=== PATIENT | male | born 1965 | race Caucasian/White ===

== ENCOUNTER 2017-02-10 16:55 | Inpatient (IN) | payer OTHER ==
[2017-02-10 19:04] VITALS: BMI 20.9
--- NOTE | 2017-02-10 20:15 | HP ---
COWS - Scale Resting Pulse: 0= [place] 80 or Below Sweatin= Chills/Flushing Restless Observation: 1= Difficult to Sit Still Pupil Size: 1= Pupils >than Normal Bone or Joint Aches: 2= Severe Diffuse Aches Runny Nose/ Eye Tearin= Nasal Congestion GI Upset > 30mins: 1= Stomach Cramp Tremor Observation: 2= Slight Tremor Visible Yawning Observation: 1= 1-2x During Session Anxiety or Irritability: 1=Feels Anxious/Irritable Goose Flesh Skin: 3=Piloerection COWS Score: 14 Admission ROS S - HPI Chief Complaint: WITHDRAWAL SX Allergies/Adverse Reactions: Allergies Allergy/AdvReac Type Severity Reaction Status Date / Time fish derived Allergy Severe Hives & Verified 02/10/17 19:49 Rash shellfish derived Allergy Severe Hives Verified 02/10/17 19:49 No Known Drug Allergies Allergy Verified 02/10/17 19:49 sea food Allergy Severe Hives Uncoded 02/10/17 19:49 History of Present Illness: 51 YEARS OLD MALE WITH LONG HISTORY OF OPIOID NICOTINE DEPENDENCE DENIES MEDICAL DENIES MENTAL ILLNESS IS ADMITTED TO DETOX Exam Limitations: No Limitations - Ebola screening Have you traveled outside of the country in the last 21 days: No (N) Have you had contact with anyone from an Ebola affected area: No Have you been sick,other than usual withdrawal symptoms: No Do you have a fever: No - Review of Systems Constitutional: Weight Stable EENT: reports: Blurred Vision (EYE GLASSES) Respiratory: reports: No Symptoms reported Cardiac: reports: No Symptoms Reported GI: reports: Nausea, Poor Fluid Intake, Abdominal cramping : reports: No Symptoms Reported Musculoskeletal: reports: Back Pain, Joint Pain, Muscle Pain, Neck Pain Integumentary: reports: Change in Color (LEFT ARM) Neuro: reports: Tremors Endocrine: reports: No Symptoms Reported Hematology: reports: No Symptoms Reported Psychiatric: reports: No Sypmtoms Reported, Judgement Intact, Mood/Affect Appropiate, Orientated x3 Other Systems: Reviewed and Negative Patient History - Patient Medical History Hx Anemia: No Hx Asthma: No Hx Chronic Obstructive Pulmonary Disease (COPD): No Hx Cancer: No Hx Cardiac Disorders: No Hx Congestive Heart Failure: No Hx Hypertension: No Hx Hypercholesterolemia: No Hx Pacemaker: No HX Cerebrovascular Accident: No Hx Seizures: No Hx Dementia: No Hx Diabetes: No Hx Gastrointestinal Disorders: No Hx Liver Disease: No Hx Genitourinary Disorders: No Hx Sexually Transmitted Disorders: No Hx Renal Disease (ESRD): No Hx Thyroid Disease: No Hx Human Immunodeficiency Virus (HIV): No (LAST 08/14 ) Hx Hepatitis C: No Hx Depression: No Hx Suicide Attempt: No Hx Bipolar Disorder: No Hx Schizophrenia: No - Patient Surgical History Past Surgical History: No Hx Neurologic Surgery: No Hx Cataract Extraction: No Hx Cardiac Surgery: No Hx Lung Surgery: No Hx Breast Surgery: No Hx Breast Biopsy: No Hx Abdominal Surgery: No Hx Appendectomy: No Hx Cholecystectomy: No Hx Genitourinary Surgery: No Hx Orthopedic Surgery: No - PPD History Previous Implant?: Yes Documented Results: Negative w/proof Implanted On Prior [facility] Admission?: Yes Date: 10/15/15 Results: 0 MM PPD to be Administered?: Yes - Smoking Cessation Smoking history: Current every day smoker Have you smoked in the past 12 months: Yes Aproximately how many cigarettes per day: 10 Cigars Per Day: 0 Hx Chewing Tobacco Use: No Initiated information on smoking cessation: Yes 'Breaking Loose' booklet given: 02/10/17 - Substance & Tx. History Hx Alcohol Use: No Hx Substance Use: Yes Substance Use Type: Opiates Hx Substance Use Treatment: Yes (01/08-01/11/16 [facility]) - Substances Abused Heroin Route: Injection Frequency: Daily Amount used: 6 bags Age of first use: 16 Date of Last Use: 02/10/17 Family Disease History - Family Disease History Family Disease History: [place]: Father (PROSTATE ) Admission Physical Exam S - Vital Signs Vital Signs: Vital Signs - 24 hr 02/10/17 19:02 Temperature 97.0 F L Pulse Rate 69 Respiratory 20 Rate Blood Pressure 151/99 - Physical General Appearance: Yes: Appropriately Dressed, Mild Distress, Thin, Tremorous, Irritable, Sweating, Anxious HEENTM: Yes: Hearing grossly Normal, Normal ENT Inspection, Normocephalic, Normal Voice, Other (EYE GLASSES) Respiratory: Yes: Chest Non-Tender, Lungs Clear, Normal Breath Sounds, No Respiratory Distress, No Accessory Muscle Use Neck: Yes: Supple, Trachea in good position Breast: Yes: Breasts Symetrical Cardiology: Yes: Regular Rhythm, Regular Rate, S1, S2 Abdominal: Yes: Non Tender, Soft Genitourinary: Yes: Within Normal Limits Back: Yes: Normal Inspection Musculoskeletal: Yes: full range of Motion, Gait Steady, Back pain, Muscle Pain Extremities: Yes: Normal Range of Motion, Non-Tender, Tremors Neurological: Yes: Alert Integumentary: Yes: Warm, Track Dasilva Lymphatic: Yes: Within Normal Limits - Diagnostic (1) Nicotine dependence Current Visit: Yes Status: Acute (2) Opioid dependence with withdrawal Current Visit: Yes Status: Acute (3) Weight decreased Current Visit: Yes Status: Acute (4) Back ache Current Visit: Yes Status: Chronic Qualifiers: Back pain location: low back pain Chronicity: chronic Back pain laterality: midline Sciatica presence: without sciatica Qualified Code(s): M54.5 - Low back pain; G89.29 - Other chronic pain (5) Excessive ear wax Current Visit: Yes Status: Chronic Qualifiers: Laterality: bilateral Qualified Code(s): H61.23 - Impacted cerumen, bilateral Cleared for Admission [facility] - Detox or Rehab [facility] Level of Care: Medically Managed Detox Regimen/Protocol: Methadone [facility] Breath Alcohol Content Breath Alcohol Content: 0 Urine Drug Screen - Results Drug Screen Negative: No Urine Drug Screen Results: OPI-Opiates
[2017-02-10] MEDS ORDERED: NICOTINE POLACRILEX 2 MG GUM BC PRN (20:17)
[2017-02-10] MEDS ORDERED: MAG HYDROX/AL HYDROX/SIMETH 30 ML UNIT-DOSE CUP PO PRN (20:17)
[2017-02-10] MEDS ORDERED: MAGNESIUM CITRATE 300 ML BOTTLE PO PRN (20:17)
[2017-02-10] MEDS ORDERED: METHADONE HCL 10 MG TABLET (FOR DETOX USE ONLY) PO ONE ×2 (20:17→23:00)
[2017-02-10] MEDS ORDERED: ACETAMINOPHEN 325 MG TABLET (FP) PO PRN (20:17)
[2017-02-10] MEDS ORDERED: guaiFENesin/D-METHORPHAN HB 10 ML UNIT-DOSE CUPS PO PRN (20:17)
[2017-02-10] MEDS ORDERED: MENTHOL/PHENOL 1 EACH UD MM PRN (20:17)
[2017-02-10] MEDS ORDERED: MAGNESIUM HYDROX 2400MG/30ML ORAL SUSPENSION 30 ML CUP PO PRN (20:17)
[2017-02-10] MEDS ORDERED: P-EPHED 60MG/TRIPROLIDI 2.5MG TABLET PO PRN (20:17)
[2017-02-10] MEDS ORDERED: LOPERAMIDE HCL 2 MG CAPSULE PO PRN (20:17)
[2017-02-10] MEDS: THIAMINE HCL 100 MG TABLET (FP) PO SCH (21:18)
[2017-02-10] MEDS: diazePAM 5 MG TABLET PO PRN (21:19)
[2017-02-10] MEDS: IBUPROFEN 400 MG TABLET (FP) PO PRN (22:49)
[2017-02-10] MEDS: diphenhydrAMINE HCL 50 MG CAPSULE PO PRN (22:49)
[2017-02-10] MEDS: CARBAMIDE PEROXIDE 6.5% OTIC 15 ML BOTTLE AU SCH (23:04)
[2017-02-10 23:18] LABS: URINE APPEARANCE CLOUDY; URINE BILIRUBIN NEGATIVE (NEGATIVE); URINE BLOOD NEGATIVE (NEGATIVE); URINE COLOR AMBER; URINE GLUCOSE (UA) NEGATIVE (NEGATIVE); URINE KETONE NEGATIVE (NEGATIVE); URINE LEUK ESTERASE NEGATIVE (NEGATIVE); URINE NITRITE NEGATIVE (NEGATIVE); URINE PROTEIN NEGATIVE (NEGATIVE); URINE UROBILINOGEN NEGATIVE mg/dL (0.2-1.0)
[2017-02-11] MEDS: diazePAM 5 MG TABLET PO PRN ×3 (05:32→22:29)
[2017-02-11] MEDS ORDERED: METHADONE HCL 10 MG TABLET (FOR DETOX USE ONLY) PO ONE (10:00)
[2017-02-11 10:27] LABS: MCH 30.1 pg (25.7-33.7); MCHC 33.3 g/dl (32.0-35.9); MEAN CELL VOLUME 90.5 fl (80-96); MEAN PLT VOLUME 7.9 fl (7.5-11.1); PLATELET COUNT 232 K/MM3 (134-434); RDW 13.5 % (11.9-15.9); WHITE BLOOD COUNT 7.4 K/mm3 (4.0-10.0)
[2017-02-11 10:33] LABS: ALBUMIN 3.2 g/dl (3.4-5.0); ANION GAP 6 (8-16); CALCIUM 8.8 mg/dL (8.5-10.1); CO2 29 mmol/L (21-32); GLUCOSE,RANDOM 79 mg/dL (74-106)
[2017-02-11] MEDS: PRENATAL VITAMINS W/ FOLIC ACID TABLET (FP) PO SCH (10:37)
[2017-02-11 10:38] LABS: ALK PHOS 83 U/L (45-117); BILIRUBIN,TOTAL 0.3 mg/dL (0.2-1.0); CREATININE 0.7 mg/dL (0.7-1.3); SGOT/AST 32 U/L (15-37); SGPT/ALT 38 U/L (12-78)
[2017-02-11] MEDS: LIDOCAINE 5% TOPICAL PATCH TP SCH (10:38)
[2017-02-11] MEDS: NICOTINE 14 MG/24 HOURS TOPICAL PATCH TD SCH (10:38)
[2017-02-11] MEDS: CARBAMIDE PEROXIDE 6.5% OTIC 15 ML BOTTLE AU SCH ×2 (11:06→22:26)
--- NOTE | 2017-02-11 12:19 | PN ---
S COWS - Scale Resting Pulse: 0= [place] 80 or Below Sweatin= Chills/Flushing Restless Observation: 1= Difficult to Sit Still Pupil Size: 0= Normal to Room Light Bone or Joint Aches: 1= Mild Discomfort Runny Nose/ Eye Tearin= Runny Nose/Eyes GI Upset > 30mins: 1= Stomach Cramp Tremor Observation of Outstretched Hands: 2= Slight Tremor Visible Yawning Observation: 2= >3x During Session Anxiety or Irritability: 2=Irritable/Anxious Goose Flesh Skin: 3=Piloerection COWS Score: 15 S Progress Note (SOAP) Subjective: Fatigue, Tremors. Objective: PT. A & O X 3. NO ACUTE DISTRESS. 02/11/17 12:20 Vital Signs Temperature 97.6 F 02/11/17 09:43 Pulse Rate 78 02/11/17 09:43 Respiratory Rate 18 02/11/17 09:43 Blood Pressure 128/89 02/11/17 09:43 O2 Sat by Pulse Oximetry (%) Laboratory Tests 02/10/17 02/11/17 02/11/17 23:11 07:00 07:00 WBC 7.4 RBC 4.41 Hgb 13.3 Hct 39.9 MCV 90.5 MCH 30.1 MCHC 33.3 RDW 13.5 Plt Count 232 MPV 7.9 Sodium 139 Potassium 3.7 Chloride 104 Carbon Dioxide 29 Anion Gap 6 L BUN 13 Creatinine 0.7 Creat Clearance w eGFR > 60 Random Glucose 79 Calcium 8.8 Total Bilirubin 0.3 D AST 32 D ALT 38 D Alkaline Phosphatase 83 Total Protein 7.0 Albumin 3.2 L Urine Color Kathleen Urine Appearance Cloudy Urine pH 5.0 Ur Specific [place] 1.025 Urine Protein Negative Urine Glucose (UA) Negative Urine Ketones Negative Urine Blood Negative Urine Nitrite Negative Urine Bilirubin Negative Urine Urobilinogen Negative Ur Leukocyte Esterase Negative RPR Titer 02/11/17 07:00 WBC RBC Hgb Hct MCV MCH MCHC RDW Plt Count MPV Sodium Potassium Chloride Carbon Dioxide Anion Gap BUN Creatinine Creat Clearance w eGFR Random Glucose Calcium Total Bilirubin AST ALT Alkaline Phosphatase Total Protein Albumin Urine Color Urine Appearance Urine pH Ur Specific [place] Urine Protein Urine Glucose (UA) Urine Ketones Urine Blood Urine Nitrite Urine Bilirubin Urine Urobilinogen Ur Leukocyte Esterase RPR Titer Nonreactive LABS NOTED. Assessment: 02/11/17 12:20 WITHDRAWAL SYMPTOMS. Plan: CONTINUE DETOX.
[2017-02-11] MEDS: IBUPROFEN 400 MG TABLET (FP) PO PRN ×2 (13:01→22:29)
--- NOTE | 2017-02-11 20:01 | EKG ---
Test Reason : Blood Pressure : / mmHG Vent. Rate : 063 BPM Atrial Rate : 063 BPM P-R Int : 178 ms QRS Dur : 108 ms QT Int : 418 ms P-R-T Axes : 067 071 063 degrees QTc Int : 427 ms NORMAL SINUS RHYTHM POSSIBLE LEFT ATRIAL ENLARGEMENT INCOMPLETE RIGHT BUNDLE BRANCH BLOCK BORDERLINE ECG NO PREVIOUS ECGS AVAILABLE Confirmed by ABEL LOPEZ MD ([id number] on 02/11/2017 8:01:10 PM Referred By: Confirmed By:ABEL LOPEZ MD
[2017-02-11] MEDS: THIAMINE HCL 100 MG TABLET (FP) PO SCH (22:27)
[2017-02-11] MEDS: diphenhydrAMINE HCL 50 MG CAPSULE PO PRN (22:29)
[2017-02-11] MEDS: LIDOCAINE PATCH REMOVAL MC SCH (22:29)
[2017-02-12] MEDS: diazePAM 5 MG TABLET PO PRN ×4 (05:38→22:25)
[2017-02-12] MEDS ORDERED: METHADONE HCL 5 MG TABLET (FOR DETOX USE ONLY) PO ONE (10:00)
[2017-02-12] MEDS: PRENATAL VITAMINS W/ FOLIC ACID TABLET (FP) PO SCH (10:37)
[2017-02-12] MEDS: CARBAMIDE PEROXIDE 6.5% OTIC 15 ML BOTTLE AU SCH ×2 (10:38→22:01)
[2017-02-12] MEDS: LIDOCAINE 5% TOPICAL PATCH TP SCH (10:38)
[2017-02-12] MEDS: NICOTINE 14 MG/24 HOURS TOPICAL PATCH TD SCH (10:38)
[2017-02-12] MEDS: IBUPROFEN 400 MG TABLET (FP) PO PRN ×2 (10:39→22:28)
--- NOTE | 2017-02-12 12:15 | PN ---
S COWS - Scale Resting Pulse: 0= [place] 80 or Below Sweatin= Chills/Flushing Restless Observation: 1= Difficult to Sit Still Pupil Size: 1= Pupils >than Normal Bone or Joint Aches: 1= Mild Discomfort Runny Nose/ Eye Tearin= Nasal Congestion GI Upset > 30mins: 2= Nausea/Diarrhea Tremor Observation of Outstretched Hands: 1= Tremor [place], Not Seen Yawning Observation: 1= 1-2x During Session Anxiety or Irritability: 2=Irritable/Anxious Goose Flesh Skin: 3=Piloerection COWS Score: 14 S Progress Note (SOAP) Subjective: nausea, sweats, interrupted sleep, anxiety, tremors felt Objective: 02/12/17 12:14 Vital Signs - 8 hr 02/12/17 02/12/17 06:46 10:15 Temperature 96.2 F L 96.6 F L Pulse Rate 65 71 Respiratory 18 18 Rate Blood Pressure 142/104 133/100 Laboratory Tests 02/10/17 02/11/17 02/11/17 23:11 07:00 07:00 WBC 7.4 RBC 4.41 Hgb 13.3 Hct 39.9 MCV 90.5 MCH 30.1 MCHC 33.3 RDW 13.5 Plt Count 232 MPV 7.9 Sodium 139 Potassium 3.7 Chloride 104 Carbon Dioxide 29 Anion Gap 6 L BUN 13 Creatinine 0.7 Creat Clearance w eGFR > 60 Random Glucose 79 Calcium 8.8 Total Bilirubin 0.3 D AST 32 D ALT 38 D Alkaline Phosphatase 83 Total Protein 7.0 Albumin 3.2 L Urine Color Kathleen Urine Appearance Cloudy Urine pH 5.0 Ur Specific [place] 1.025 Urine Protein Negative Urine Glucose (UA) Negative Urine Ketones Negative Urine Blood Negative Urine Nitrite Negative Urine Bilirubin Negative Urine Urobilinogen Negative Ur Leukocyte Esterase Negative RPR Titer 02/11/17 07:00 WBC RBC Hgb Hct MCV MCH MCHC RDW Plt Count MPV Sodium Potassium Chloride Carbon Dioxide Anion Gap BUN Creatinine Creat Clearance w eGFR Random Glucose Calcium Total Bilirubin AST ALT Alkaline Phosphatase Total Protein Albumin Urine Color Urine Appearance Urine pH Ur Specific [place] Urine Protein Urine Glucose (UA) Urine Ketones Urine Blood Urine Nitrite Urine Bilirubin Urine Urobilinogen Ur Leukocyte Esterase RPR Titer Nonreactive elevated lfts, hypoalbuminemia Assessment: 02/12/17 12:15 withdrawal sx Plan: cont detox, fluids, encourage ambulation
[2017-02-12] MEDS ORDERED: PNEUMOC 13-VAL CONJ-DIP CRM/PF 0.5 ML DISP.SYRIN IM ONE (14:29)
[2017-02-12] MEDS: THIAMINE HCL 100 MG TABLET (FP) PO SCH (22:25)
[2017-02-12] MEDS: diphenhydrAMINE HCL 50 MG CAPSULE PO PRN (22:25)
[2017-02-12] MEDS: LIDOCAINE PATCH REMOVAL MC SCH (22:27)
[2017-02-13] MEDS: diazePAM 5 MG TABLET PO PRN (04:57)
[2017-02-13] MEDS ORDERED: METHADONE HCL 5 MG TABLET (FOR DETOX USE ONLY) PO ONE (10:00)
[2017-02-13] MEDS ORDERED: METHADONE HCL 10 MG TABLET (FOR DETOX USE ONLY) PO ONE (10:00)
[2017-02-13] MEDS: LIDOCAINE 5% TOPICAL PATCH TP SCH (10:31)
[2017-02-13] MEDS: PRENATAL VITAMINS W/ FOLIC ACID TABLET (FP) PO SCH (10:31)
[2017-02-13] MEDS: NICOTINE 14 MG/24 HOURS TOPICAL PATCH TD SCH (10:34)
[2017-02-13] MEDS: CARBAMIDE PEROXIDE 6.5% OTIC 15 ML BOTTLE AU SCH ×2 (10:34→22:18)
[2017-02-13] MEDS ORDERED: PNEUMOCOCCAL 23 VACCINE 0.5 ML VIAL IM ONE (12:00)
[2017-02-13] MEDS ORDERED: PNEUMOC 13-VAL CONJ-DIP CRM/PF 0.5 ML DISP.SYRIN IM ONE (12:00)
--- NOTE | 2017-02-13 16:23 | PN ---
[facility] Progress Note (SOAP) Subjective: Sweating,interrupted sleep,restless. Objective: 02/13/17 16:22 Vital Signs - 8 hr 02/13/17 02/13/17 09:38 13:57 Temperature 97.7 F Pulse Rate 77 74 Respiratory 18 18 Rate Blood Pressure 124/91 129/96 Laboratory Last Values WBC 7.4 K/mm3 (4.0-10.0) 02/11/17 07:00 RBC 4.41 M/mm3 (4.00-5.60) 02/11/17 07:00 Hgb 13.3 GM/dL (11.7-16.9) 02/11/17 07:00 Hct 39.9 % (35.4-49) 02/11/17 07:00 MCV 90.5 fl (80-96) 02/11/17 07:00 MCH 30.1 pg (25.7-33.7) 02/11/17 07:00 MCHC 33.3 g/dl (32.0-35.9) 02/11/17 07:00 RDW 13.5 % (11.9-15.9) 02/11/17 07:00 Plt Count 232 K/MM3 (134-434) 02/11/17 07:00 MPV 7.9 fl (7.5-11.1) 02/11/17 07:00 Sodium 139 mmol/L (136-145) 02/11/17 07:00 Potassium 3.7 mmol/L (3.5-5.1) 02/11/17 07:00 Chloride 104 mmol/L (98-107) 02/11/17 07:00 Carbon Dioxide 29 mmol/L (21-32) 02/11/17 07:00 Anion Gap 6 (8-16) L 02/11/17 07:00 BUN 13 mg/dL (7-18) 02/11/17 07:00 Creatinine 0.7 mg/dL (0.7-1.3) 02/11/17 07:00 Creat Clearance w eGFR > 60 (>60) 02/11/17 07:00 Random Glucose 79 mg/dL (74-106) 02/11/17 07:00 Calcium 8.8 mg/dL (8.5-10.1) 02/11/17 07:00 Total Bilirubin 0.3 mg/dL (0.2-1.0) D 02/11/17 07:00 AST 32 U/L (15-37) D 02/11/17 07:00 ALT 38 U/L (12-78) D 02/11/17 07:00 Alkaline Phosphatase 83 U/L (45-117) 02/11/17 07:00 Total Protein 7.0 g/dl (6.4-8.2) 02/11/17 07:00 Albumin 3.2 g/dl (3.4-5.0) L 02/11/17 07:00 Urine Color Kathleen 02/10/17 23:11 Urine Appearance Cloudy 02/10/17 23:11 Urine pH 5.0 (5.0-8.0) 02/10/17 23:11 Ur Specific [place] 1.025 (1.005-1.025) 02/10/17 23:11 Urine Protein Negative (NEGATIVE) 02/10/17 23:11 Urine Glucose (UA) Negative (NEGATIVE) 02/10/17 23:11 Urine Ketones Negative (NEGATIVE) 02/10/17 23:11 Urine Blood Negative (NEGATIVE) 02/10/17 23:11 Urine Nitrite Negative (NEGATIVE) 02/10/17 23:11 Urine Bilirubin Negative (NEGATIVE) 02/10/17 23:11 Urine Urobilinogen Negative mg/dL (0.2-1.0) 02/10/17 23:11 Ur Leukocyte Esterase Negative (NEGATIVE) 02/10/17 23:11 RPR Titer Nonreactive (NONREACTIVE) 02/11/17 07:00 labs noted Assessment: 02/13/17 16:22 Withdrawal sx. Plan: Continue detox
[2017-02-13] MEDS: IBUPROFEN 400 MG TABLET (FP) PO PRN (18:41)
[2017-02-13] MEDS: THIAMINE HCL 100 MG TABLET (FP) PO SCH (22:17)
[2017-02-13] MEDS: diphenhydrAMINE HCL 50 MG CAPSULE PO PRN (22:18)
[2017-02-13] MEDS: LIDOCAINE PATCH REMOVAL MC SCH (23:01)
[2017-02-14] MEDS ORDERED: METHADONE HCL 5 MG TABLET (FOR DETOX USE ONLY) PO ONE (06:00)
[2017-02-14 06:27] VITALS: BP 139/99; PULSE 64; TEMP 97
[2017-02-14] MEDS ORDERED: METHADONE HCL 10 MG TABLET (FOR DETOX USE ONLY) PO ONE (10:00)
--- NOTE | 2017-02-14 22:30 | DS ---
[facility] Detox Discharge Summary Admission Date: 02/10/17 Discharge Date: 02/14/17 - History Present History: Opioid Dependence Additional Comments: PATIENT TO GO TO [facility] IN [place]. PATIENT ADVISED TO CONSIDER LOCAL 12-STEP / NA PROGRAMS FOR FOLLOW-UP AFTERCARE. PATIENT DISCHARGED FROM UNIT IN STABLE MEDICAL CONDITION. Pertinent Past History: Low Back Pain, Ear Wax. - Physical Exam Results Vital Signs: Vital Signs Temperature 97 F L 02/14/17 06:26 Pulse Rate 64 02/14/17 06:26 Respiratory Rate 18 02/14/17 06:26 Blood Pressure 139/99 02/14/17 06:26 O2 Sat by Pulse Oximetry (%) Pertinent Admission Physical Exam Findings: WITHDRAWAL SYMPTOMS. Laboratory Tests 02/10/17 02/11/17 02/11/17 23:11 07:00 07:00 WBC 7.4 RBC 4.41 Hgb 13.3 Hct 39.9 MCV 90.5 MCH 30.1 MCHC 33.3 RDW 13.5 Plt Count 232 MPV 7.9 Sodium 139 Potassium 3.7 Chloride 104 Carbon Dioxide 29 Anion Gap 6 L BUN 13 Creatinine 0.7 Creat Clearance w eGFR > 60 Random Glucose 79 Calcium 8.8 Total Bilirubin 0.3 D AST 32 D ALT 38 D Alkaline Phosphatase 83 Total Protein 7.0 Albumin 3.2 L Urine Color Kathleen Urine Appearance Cloudy Urine pH 5.0 Ur Specific [place] 1.025 Urine Protein Negative Urine Glucose (UA) Negative Urine Ketones Negative Urine Blood Negative Urine Nitrite Negative Urine Bilirubin Negative Urine Urobilinogen Negative Ur Leukocyte Esterase Negative RPR Titer 02/11/17 07:00 WBC RBC Hgb Hct MCV MCH MCHC RDW Plt Count MPV Sodium Potassium Chloride Carbon Dioxide Anion Gap BUN Creatinine Creat Clearance w eGFR Random Glucose Calcium Total Bilirubin AST ALT Alkaline Phosphatase Total Protein Albumin Urine Color Urine Appearance Urine pH Ur Specific [place] Urine Protein Urine Glucose (UA) Urine Ketones Urine Blood Urine Nitrite Urine Bilirubin Urine Urobilinogen Ur Leukocyte Esterase RPR Titer Nonreactive LABS NOTED. - Treatment Hospital Course: Detox Protocol Followed, Detoxed Safely, Responded well, Discharged Condition Good Patient has Accepted a Rehab Referral to: PT GOING TO [facility], ADVISED TO CONSIDER 12-STEP/NA PROGRAMS - Medication Discharge Medications: Ambulatory Orders NK [No Known Home Medication] 10/14/13 - Diagnosis (1) Nicotine dependence Status: Chronic (2) Back ache Status: Chronic Qualifiers: Back pain location: low back pain Chronicity: chronic Back pain laterality: midline Sciatica presence: without sciatica Qualified Code(s): M54.5 - Low back pain (3) Excessive ear wax Status: Chronic Qualifiers: Laterality: bilateral Qualified Code(s): H61.23 - Impacted cerumen, bilateral (4) Opioid dependence with withdrawal Status: Acute (5) Weight decreased Status: Acute - AMA Did Patient Leave Against Medical Advice: No
[2017-02-15] MEDS ORDERED: METHADONE HCL 5 MG TABLET (FOR DETOX USE ONLY) PO ONE (06:00)
== END 2017-02-14 07:20 | disposition home or self-care (01) | DRG 773 ==
LOC: YASAS 16:55 → Y3N 20:05
PROVIDERS: ADMIT Internal Medicine; ATTEND Internal Medicine
PROC: HZ2ZZZZ Detoxification Services for Substance Abuse Treatment (ICD-10-PCS; principal; 2017-02-10)
DX: F11.23 Opioid dependence with withdrawal (principal); F17.210 Nicotine dependence, cigarettes, uncomplicated; H61.23 Impacted cerumen, bilateral; M54.5 Low back pain; R94.5 Abnormal results of liver function studies; E88.09 Other disorders of plasma-protein metabolism, not elsewhere classified; Z91.013 Allergy to seafood; Z87.898 Personal history of other specified conditions
CPT/HCPCS: 36415; 80053; 81003; 85027; 86593; 93005; 93010

== ENCOUNTER 2017-11-06 13:56 | Inpatient (IN) | payer OTHER ==
[2017-11-06 16:22] VITALS: BMI 25.0
--- NOTE | 2017-11-06 17:11 | HP ---
COWS - Scale Resting Pulse: 1= [place] 81-100 Sweatin= Beads of Sweat on Face Restless Observation: 1= Difficult to Sit Still Pupil Size: 2= Moderately Dilated Bone or Joint Aches: 2= Severe Diffuse Aches Runny Nose/ Eye Tearin= Nasal Congestion GI Upset > 30mins: 0= None Tremor Observation: 0= None Yawning Observation: 1= 1-2x During Session Anxiety or Irritability: 2=Irritable/Anxious Goose Flesh Skin: 0=Smooth Skin COWS Score: 13 Admission ROS [facility] Chief Complaint: Heroin withdrawal symptoms. Allergies/Adverse Reactions: Allergies Allergy/AdvReac Type Severity Reaction Status Date / Time fish derived Allergy Severe Hives & Verified 11/06/17 17:08 Rash shellfish derived Allergy Severe Hives Verified 11/06/17 17:08 No Known Drug Allergies Allergy Verified 11/06/17 17:08 sea food Allergy Severe Hives Uncoded 11/06/17 17:08 History of Present Illness: Patient presents for heroin withdrawal symptoms. Pt last detox here at [facility] in 2016. Began injecting Heroin at 21 years old and uses up to 5-6 bags daily. Patient last used heroin this morning at 6 am. Denies any SI/HI/suicide attempts. Denies history of Hep C and HIV. States he feels tired and just wants to stop using. - Ebola screening Have you traveled outside of the country in the last 21 days: No ([place]) Have you had contact with anyone from an Ebola affected area: No Have you been sick,other than usual withdrawal symptoms: No Do you have a fever: No - Review of Systems Constitutional: Night Sweats, Changes in sleep, Unintentional Wgt. Loss EENT: reports: Tearing, Nose Congestion Respiratory: reports: No Symptoms reported Cardiac: reports: No Symptoms Reported GI: reports: Poor Fluid Intake : reports: No Symptoms Reported Musculoskeletal: reports: Back Pain, Muscle Pain Integumentary: reports: Sweating Neuro: reports: No Symptoms reported Endocrine: reports: Unexplained Weight Loss Hematology: reports: No Symptoms Reported Psychiatric: reports: Orientated x3, Anxious, Depressed Patient History - Patient Medical History Hx Anemia: No Hx Asthma: No Hx Chronic Obstructive Pulmonary Disease (COPD): No Hx Cancer: No Hx Cardiac Disorders: No Hx Congestive Heart Failure: No Hx Hypertension: No Hx Hypercholesterolemia: No Hx Pacemaker: No HX Cerebrovascular Accident: No Hx Seizures: No Hx Dementia: No Hx Diabetes: No Hx Gastrointestinal Disorders: No Hx Liver Disease: No Hx Genitourinary Disorders: No Hx Sexually Transmitted Disorders: No Hx Renal Disease (ESRD): No Hx Thyroid Disease: No Hx Human Immunodeficiency Virus (HIV): No (Last HIV test 2106 and reports negative) Hx Hepatitis C: No Hx Depression: No Hx Suicide Attempt: No Hx Bipolar Disorder: No Hx Schizophrenia: No - Patient Surgical History Past Surgical History: No Hx Neurologic Surgery: No Hx Cataract Extraction: No Hx Cardiac Surgery: No Hx Lung Surgery: No Hx Breast Surgery: No Hx Breast Biopsy: No Hx Abdominal Surgery: No Hx Appendectomy: No Hx Cholecystectomy: No Hx Genitourinary Surgery: No Hx Section: No Hx Orthopedic Surgery: No Anesthesia Reaction: No - PPD History Date: 02/12/17 Results: 0 MM - Smoking Cessation Smoking history: Current every day smoker Have you smoked in the past 12 months: Yes Aproximately how many cigarettes per day: 10 Cigars Per Day: 0 Hx Chewing Tobacco Use: No Initiated information on smoking cessation: Yes 'Breaking Loose' booklet given: 11/06/17 - Substance & Tx. History Hx Alcohol Use: No Hx Substance Use: Yes Substance Use Type: Heroin Hx Substance Use Treatment: Yes - Substances Abused Heroin Route: Injection Frequency: Daily Amount used: 5-6 BAGS Age of first use: 21 Date of Last Use: 11/06/17 Family Disease History - Family Disease History Family Disease History: [place]: Father (PROSTATE ) Admission Physical Exam [facility] - Vital Signs Vital Signs: Vital Signs - 24 hr 11/06/17 16:20 Temperature 97.0 F L Pulse Rate 66 Respiratory 20 Rate Blood Pressure 136/99 - Physical General Appearance: Yes: Disheveled, Sweating, Anxious HEENTM: Yes: EOMI, Hearing grossly Normal, Normocephalic, Normal Voice, GRACIELA, Pharynx Normal, Nasal Congestion Respiratory: Yes: Chest Non-Tender, Lungs Clear, Normal Breath Sounds, No Respiratory Distress, No Accessory Muscle Use Neck: Yes: Within Normal Limits, No masses,lesions,Nodules, Supple Breast: Yes: Breast Exam Deferred Cardiology: Yes: Regular Rhythm, Regular Rate, S1, S2 Abdominal: Yes: Normal Bowel Sounds, Non Tender, Flat, Soft Genitourinary: Yes: Within Normal Limits Back: Yes: Muscle Spasm Musculoskeletal: Yes: Gait Steady, Back pain, Muscle Pain Extremities: Yes: Normal Inspection, Normal Range of Motion, Non-Tender Neurological: Yes: brim flexer II-XII NML intact, Fully Oriented, Alert, Motor Strength 5/5, Normal Response, Depressed Affect Integumentary: Yes: Normal Color, Warm, Moist, Track Dasilva Lymphatic: Yes: Within Normal Limits - Diagnostic (1) Depressed affect Current Visit: Yes Status: Acute (2) Anxiety Current Visit: Yes Status: Acute (3) Opioid dependence with withdrawal Current Visit: Yes Status: Acute (4) Weight decreased Current Visit: Yes Status: Acute (5) Nicotine dependence Current Visit: Yes Status: Chronic Cleared for Admission [facility] - Detox or Rehab [facility] Level of Care: Medically Managed Detox Regimen/Protocol: Methadone [facility] Breath Alcohol Content Breath Alcohol Content: 0 Urine Drug Screen - Results Drug Screen Negative: No Urine Drug Screen Results: OPI-Opiates
[2017-11-06] MEDS ORDERED: NICOTINE POLACRILEX 2 MG GUM BUC PRN (17:29)
[2017-11-06] MEDS ORDERED: MAGNESIUM CITRATE 300 ML BOTTLE PO PRN (17:29)
[2017-11-06] MEDS ORDERED: LOPERAMIDE HCL 2 MG CAPSULE PO PRN (17:29)
[2017-11-06] MEDS ORDERED: P-EPHED 60MG/TRIPROLIDI 2.5MG TABLET PO PRN (17:29)
[2017-11-06] MEDS ORDERED: MENTHOL/PHENOL 1 EACH UD MM PRN (17:29)
[2017-11-06] MEDS ORDERED: MAG HYDROX/AL HYDROX/SIMETH 30 ML UNIT-DOSE CUP PO PRN (17:29)
[2017-11-06] MEDS ORDERED: MAGNESIUM HYDROX 2400MG/30ML ORAL SUSPENSION 30 ML CUP PO PRN (17:29)
[2017-11-06] MEDS ORDERED: METHADONE HCL 10 MG TABLET (FOR DETOX USE ONLY) PO ONE ×2 (17:30→23:00)
[2017-11-06] MEDS ORDERED: ACETAMINOPHEN 325 MG TABLET (FP) PO PRN (17:34)
[2017-11-06] MEDS ORDERED: hydrOXYzine PAMOATE 50 MG CAPSULE (FP) PO PRN (17:34)
[2017-11-06] MEDS ORDERED: guaiFENesin/D-METHORPHAN HB 10 ML UNIT-DOSE CUPS PO PRN (17:34)
[2017-11-06] MEDS: diazePAM 5 MG TABLET PO PRN (18:52)
[2017-11-06] MEDS ORDERED: cloNIDine HCL 0.1 MG TABLET PO ONE (19:11)
--- NOTE | 2017-11-06 19:21 | PN ---
[facility] Progress Note Note: Called because patient with elevated blood pressure of 162/108. Vital Signs Period Temp Pulse Resp BP Sys/[place] Pulse Ox Last 24 Hr 97.0 F 66 20 136/99 Patient denies hx. HTN. Denies headache, vertigo or other neurological changes. Denies CP or dyspnea. HR: 76 RR, No murmur noted. Lungs CTA. Pupils at 3 mm, GRACIELA. Took manual B/P: 152/104. Give clonidine 0.1 mg PO now. Start Lisinopril 5 mg PO daily, w/ parameters. Repeat B/P in 1 hr. Instructed to get from bed or chair slowly and to notify medical of any chest pain.
[2017-11-06] MEDS ORDERED: MELATONIN 5 MG TABLETS PO PRN (22:00)
[2017-11-06] MEDS: THIAMINE HCL 100 MG TABLET (FP) PO SCH (22:31)
--- NOTE | 2017-11-07 09:22 | EKG ---
Test Reason : Blood Pressure : / mmHG Vent. Rate : 060 BPM Atrial Rate : 060 BPM P-R Int : 178 ms QRS Dur : 108 ms QT Int : 424 ms P-R-T Axes : 062 063 058 degrees QTc Int : 424 ms NORMAL SINUS RHYTHM INCOMPLETE RIGHT BUNDLE BRANCH BLOCK BORDERLINE ECG WHEN COMPARED WITH ECG OF 10-FEB-2017 20:29, NO SIGNIFICANT CHANGE WAS FOUND Confirmed by RAMOS HUFFMAN MD ([id number]) on 11/07/2017 9:22:10 AM Referred By: Confirmed By:RAMOS HUFFMAN MD
[2017-11-07] MEDS: PRENATAL VITAMINS W/ FOLIC ACID TABLET (FP) PO SCH (09:30)
[2017-11-07] MEDS: diazePAM 5 MG TABLET PO PRN ×4 (09:30→22:09)
[2017-11-07] MEDS: NICOTINE 21 MG/24 HOURS TOPICAL PATCH TD SCH (09:30)
[2017-11-07] MEDS ORDERED: LISINOPRIL 5 MG TABLET (FP) PO SCH (10:00)
[2017-11-07] MEDS ORDERED: METHADONE HCL 10 MG TABLET (FOR DETOX USE ONLY) PO ONE (10:00)
[2017-11-07 10:07] LABS: HEMATOCRIT 39.6 % (35.4-49); HEMOGLOBIN 13.8 GM/dL (11.7-16.9); MCH 31.5 pg (25.7-33.7); MCHC 34.8 g/dl (32.0-35.9); MEAN CELL VOLUME 90.4 fl (80-96); PLATELET COUNT 254 K/MM3 (134-434); RBC 4.38 M/mm3 (4.00-5.60); RDW 13.1 % (11.9-15.9); WHITE BLOOD COUNT 7.1 K/mm3 (4.0-10.0)
[2017-11-07 10:34] LABS: CHLORIDE 106 mmol/L (98-107); SODIUM 140 mmol/L (136-145)
[2017-11-07 10:46] LABS: ALBUMIN 3.2 g/dl (3.4-5.0); ALK PHOS 87 U/L (45-117); ANION GAP 7 (8-16); BILIRUBIN,TOTAL 0.4 mg/dL (0.2-1.0); BLOOD UREA NITROGEN 11 mg/dL (7-18); CALCIUM 8.4 mg/dL (8.5-10.1); CO2 27 mmol/L (21-32); CREATININE 0.8 mg/dL (0.7-1.3); GLUCOSE,RANDOM 95 mg/dL (74-106); SGOT/AST 36 U/L (15-37); SGPT/ALT 38 U/L (12-78); TOT PROT 7.4 g/dl (6.4-8.2)
--- NOTE | 2017-11-07 10:59 | CONSULT ---
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 Substance Abuse History: Confirmed by patient in my interview.Details in current [facility] report : Smoking history: Current every day smoker. Have you smoked in the past 12 months: Yes. Aproximately how many cigarettes per day: 10. Cigars Per Day: 0. Hx Chewing Tobacco Use: No. Initiated information on smoking cessation: Yes. 'Breaking Loose' booklet given: 11/06/17. - Substance & Tx. History. Hx Alcohol Use: No. Hx Substance Use: Yes. Substance Use Type : Heroin. Hx Substance Use Treatment: Yes. - Substances Abused. Heroin. Route: Injection. Frequency: Daily. Amount used: 5-6 BAGS. Age of first use: 21. Date of Last Use: 11/06/17 Medical History: Patient endorses good general health. Psychiatric History: Patient denies history of psychiatric hospitalizations or suicide attempts.No prior exposure to psychotropic medications.Mr Rob indicates that he was referred to [facility] by his outpatient program, [facility], located in [facility].Extensive history of opioid dependence. Physical/Sexual Abuse/Trauma History: Patient denies. Additional Comment: Urine Drug Screen Results: OPI-Opiates.Noted. Mental Status Exam - Mental Status Exam Alert and Oriented to: Time, Place, Person Cognitive Function: Good Patient Appearance: Well Groomed Mood: Withdrawn, Anxious (dysphoric) Affect: Appropriate, Normal Range Patient Behavior: Fatigued, Appropriate, Cooperative Speech Pattern: Clear Voice Loudness: Normal Thought Process: Intact, Goal Oriented Thought Disorder: Not Present Hallucinations: Denies Suicidal Ideation: Denies Homicidal Ideation: Denies Insight/Judgement: Poor Sleep: Poorly, Difficulty falling asleep (wants benadryl at bedtime) Appetite: Good Muscle strength/Tone: Normal Gait/Station: Normal Psychiatric Findings - Problem List ([place] 1, 2,3) (1) Opioid dependence with withdrawal Current Visit: Yes Status: Acute (2) Nicotine dependence Current Visit: Yes Status: Acute (3) Drug-induced mood disorder Current Visit: Yes Status: Suspected (4) Insomnia Current Visit: Yes Status: Acute - Initial Treatment Plan Initial Treatment Plan: Psychoeducation.Sleep hygiene.Detoxification.Benadryl 50 mg po hs prn.Side effects/benefits discussed with the patient.Mr Rivas agrees with this careplan.Observation.
--- NOTE | 2017-11-07 16:47 | PN ---
BHS COWS - Scale Resting Pulse: 0= [place] 80 or Below Sweatin= Chills/Flushing Restless Observation: 1= Difficult to Sit Still Pupil Size: 0= Normal to Room Light Bone or Joint Aches: 2= Severe Diffuse Aches Runny Nose/ Eye Tearin= Runny Nose/Eyes GI Upset > 30mins: 0= None Tremor Observation of Outstretched Hands: 0= None Yawning Observation: 1= 1-2x During Session Anxiety or Irritability: 4=Extreme Anxiety Goose Flesh Skin: 3=Piloerection COWS Score: 14 BHS Progress Note (SOAP) Subjective: Anxious, Interrupted sleep, Body Aches. Objective: PATIENT A & O X 3, OBSERVED AMBULATING ON UNIT. NO ACUTE DISTRESS. 11/07/17 16:46 Vital Signs Temperature 98.8 F 11/07/17 14:55 Pulse Rate 64 11/07/17 14:55 Respiratory Rate 18 11/07/17 14:55 Blood Pressure 130/96 11/07/17 14:55 O2 Sat by Pulse Oximetry (%) Laboratory Tests 11/07/17 11/07/17 11/07/17 08:00 08:00 08:00 WBC 7.1 RBC 4.38 Hgb 13.8 Hct 39.6 MCV 90.4 MCH 31.5 MCHC 34.8 RDW 13.1 Plt Count 254 MPV 8.0 Sodium 140 Potassium 4.0 Chloride 106 Carbon Dioxide 27 Anion Gap 7 L BUN 11 Creatinine 0.8 Creat Clearance w eGFR > 60 Random Glucose 95 D Calcium 8.4 L Total Bilirubin 0.4 D AST 36 ALT 38 Alkaline Phosphatase 87 Total Protein 7.4 Albumin 3.2 L RPR Titer Nonreactive LABS NOTED. UA RESULTS PENDING. 11/07/17 16:47 Assessment: 11/07/17 16:47 WITHDRAWAL SYMPTOMS. Plan: CONTINUE DETOX. INCREASE DAILY PO FLUID INTAKE. CLONIDINE, 0.1 MG PO X 1 FOR ELEVATED BP.
[2017-11-07] MEDS ORDERED: cloNIDine HCL 0.1 MG TABLET PO ONE (17:00)
[2017-11-07] MEDS: THIAMINE HCL 100 MG TABLET (FP) PO SCH (22:09)
[2017-11-07] MEDS: diphenhydrAMINE HCL 25 MG CAPSULE (FP) PO PRN (22:10)
[2017-11-08] MEDS: diazePAM 5 MG TABLET PO PRN ×4 (06:00→22:14)
[2017-11-08] MEDS ORDERED: METHADONE HCL 5 MG TABLET (FOR DETOX USE ONLY) PO ONE (10:00)
[2017-11-08] MEDS: NICOTINE 21 MG/24 HOURS TOPICAL PATCH TD SCH (10:12)
[2017-11-08] MEDS: PRENATAL VITAMINS W/ FOLIC ACID TABLET (FP) PO SCH (10:12)
[2017-11-08 10:13] LABS: URINE APPEARANCE CLEAR; URINE BILIRUBIN NEGATIVE (<2.0 mg/dL); URINE COLOR COLORLESS; URINE GLUCOSE (UA) NEGATIVE (NEGATIVE); URINE KETONE NEGATIVE (NEGATIVE); URINE LEUK ESTERASE NEGATIVE (NEGATIVE); URINE NITRITE NEGATIVE (NEGATIVE); URINE PROTEIN NEGATIVE (NEGATIVE); URINE UROBILINOGEN NEGATIVE mg/dL (0.2-1.0)
--- NOTE | 2017-11-08 14:30 | PN ---
S COWS - Scale Resting Pulse: 0= [place] 80 or Below Sweatin= Chills/Flushing Restless Observation: 3= Extraneous Movement Pupil Size: 0= Normal to Room Light Bone or Joint Aches: 4=Acute Joint/Muscle Pain Runny Nose/ Eye Tearin= Nasal Congestion GI Upset > 30mins: 1= Stomach Cramp Tremor Observation of Outstretched Hands: 2= Slight Tremor Visible Yawning Observation: 0= None Anxiety or Irritability: 2=Irritable/Anxious Goose Flesh Skin: 0=Smooth Skin COWS Score: 14 S Progress Note (SOAP) Subjective: ALERT O X 3. SWEATS/CHILLS. OOB AMBULATING ON UNIT. DENIES ACUTE DISTRESS. PT REQUESTS METHADONE ADJUSTMENT TAPER FOR EARLYDISCHARGE. Objective: 11/08/17 14:26 Vital Signs Temperature 98.1 F 11/08/17 13:59 Pulse Rate 76 11/08/17 13:59 Respiratory Rate 18 11/08/17 13:59 Blood Pressure 132/94 11/08/17 13:59 O2 Sat by Pulse Oximetry (%) Laboratory Tests 11/07/17 11/07/17 11/07/17 08:00 08:00 08:00 WBC 7.1 RBC 4.38 Hgb 13.8 Hct 39.6 MCV 90.4 MCH 31.5 MCHC 34.8 RDW 13.1 Plt Count 254 MPV 8.0 Sodium 140 Potassium 4.0 Chloride 106 Carbon Dioxide 27 Anion Gap 7 L BUN 11 Creatinine 0.8 Creat Clearance w eGFR > 60 Random Glucose 95 D Calcium 8.4 L Total Bilirubin 0.4 D AST 36 ALT 38 Alkaline Phosphatase 87 Total Protein 7.4 Albumin 3.2 L Urine Color Urine Appearance Urine pH Ur Specific [place] Urine Protein Urine Glucose (UA) Urine Ketones Urine Blood Urine Nitrite Urine Bilirubin Urine Urobilinogen Ur Leukocyte Esterase RPR Titer Nonreactive 11/08/17 09:14 WBC RBC Hgb Hct MCV MCH MCHC RDW Plt Count MPV Sodium Potassium Chloride Carbon Dioxide Anion Gap BUN Creatinine Creat Clearance w eGFR Random Glucose Calcium Total Bilirubin AST ALT Alkaline Phosphatase Total Protein Albumin Urine Color Colorless Urine Appearance Clear Urine pH 7.0 D Ur Specific [place] 1.002 Urine Protein Negative Urine Glucose (UA) Negative Urine Ketones Negative Urine Blood Negative Urine Nitrite Negative Urine Bilirubin Negative Urine Urobilinogen Negative Ur Leukocyte Esterase Negative RPR Titer Assessment: 11/08/17 14:26 WITHDRAWAL SX Plan: CONTINUE DETOX D/C LAST METHADONE 15 MG RESUME WITH METAHDONE 10 MG PO ON 11/09/17 AND METHADONE 10 MG PO ON 11/10/17 , THEN D/C.
[2017-11-08] MEDS: IBUPROFEN 400 MG TABLET (FP) PO PRN (18:54)
[2017-11-08] MEDS: THIAMINE HCL 100 MG TABLET (FP) PO SCH (22:12)
[2017-11-08] MEDS: diphenhydrAMINE HCL 25 MG CAPSULE (FP) PO PRN (22:14)
[2017-11-09] MEDS: IBUPROFEN 400 MG TABLET (FP) PO PRN (05:11)
[2017-11-09] MEDS: diazePAM 5 MG TABLET PO PRN ×2 (05:11→09:15)
[2017-11-09] MEDS ORDERED: METHADONE HCL 10 MG TABLET (FOR DETOX USE ONLY) PO ONE (10:00)
[2017-11-09] MEDS ORDERED: METHADONE HCL 5 MG TABLET (FOR DETOX USE ONLY) PO ONE (10:00)
[2017-11-09] MEDS: PRENATAL VITAMINS W/ FOLIC ACID TABLET (FP) PO SCH (10:05)
[2017-11-09] MEDS: NICOTINE 21 MG/24 HOURS TOPICAL PATCH TD SCH (10:07)
--- NOTE | 2017-11-09 14:32 | PN ---
BHS Progress Note (SOAP) Subjective: Sweats shakes sleep disturbance Objective: 11/09/17 14:31 A & O x 3 AMbulating steadily on unit Vital Signs Temperature 95.8 F L 11/09/17 14:25 Pulse Rate 69 11/09/17 14:25 Respiratory Rate 18 11/09/17 14:25 Blood Pressure 129/87 11/09/17 14:25 O2 Sat by Pulse Oximetry (%) Assessment: 11/09/17 14:31 withdrawal sx Plan: continue detox For d/c tomorrow
[2017-11-09] MEDS: THIAMINE HCL 100 MG TABLET (FP) PO SCH (21:31)
[2017-11-09] MEDS: diphenhydrAMINE HCL 25 MG CAPSULE (FP) PO PRN (21:31)
[2017-11-10] MEDS ORDERED: METHADONE HCL 5 MG TABLET (FOR DETOX USE ONLY) PO ONE (06:00)
[2017-11-10 06:05] VITALS: BP 101/74; PULSE 71; TEMP 96.5
[2017-11-10] MEDS ORDERED: METHADONE HCL 10 MG TABLET (FOR DETOX USE ONLY) PO ONE (10:00)
--- NOTE | 2017-11-10 13:21 | PN ---
BHS Progress Note (SOAP) Subjective: Patient denies current Detox symptoms and reports that he feels well overall. Objective: PATIENT A & O X 3, OBSERVED AMBULATING ON UNIT. NO ACUTE DISTRESS. 11/10/17 13:20 Vital Signs Temperature 96.5 F L 11/10/17 06:05 Pulse Rate 71 11/10/17 06:05 Respiratory Rate 18 11/10/17 06:05 Blood Pressure 101/74 11/10/17 06:05 O2 Sat by Pulse Oximetry (%) Laboratory Tests 11/07/17 11/07/17 11/07/17 08:00 08:00 08:00 WBC 7.1 RBC 4.38 Hgb 13.8 Hct 39.6 MCV 90.4 MCH 31.5 MCHC 34.8 RDW 13.1 Plt Count 254 MPV 8.0 Sodium 140 Potassium 4.0 Chloride 106 Carbon Dioxide 27 Anion Gap 7 L BUN 11 Creatinine 0.8 Creat Clearance w eGFR > 60 Random Glucose 95 D Calcium 8.4 L Total Bilirubin 0.4 D AST 36 ALT 38 Alkaline Phosphatase 87 Total Protein 7.4 Albumin 3.2 L Urine Color Urine Appearance Urine pH Ur Specific [place] Urine Protein Urine Glucose (UA) Urine Ketones Urine Blood Urine Nitrite Urine Bilirubin Urine Urobilinogen Ur Leukocyte Esterase RPR Titer Nonreactive 11/08/17 09:14 WBC RBC Hgb Hct MCV MCH MCHC RDW Plt Count MPV Sodium Potassium Chloride Carbon Dioxide Anion Gap BUN Creatinine Creat Clearance w eGFR Random Glucose Calcium Total Bilirubin AST ALT Alkaline Phosphatase Total Protein Albumin Urine Color Colorless Urine Appearance Clear Urine pH 7.0 D Ur Specific [place] 1.002 Urine Protein Negative Urine Glucose (UA) Negative Urine Ketones Negative Urine Blood Negative Urine Nitrite Negative Urine Bilirubin Negative Urine Urobilinogen Negative Ur Leukocyte Esterase Negative RPR Titer LABS NOTED. Assessment: 11/10/17 13:20 COMPLETION OF DETOX REGIMEN. Plan: PATIENT SCHEDULED FOR DISCHARGE FROM DETOX UNIT TODAY.
--- NOTE | 2017-11-10 13:25 | DS ---
[facility] Detox Discharge Summary Admission Date: 11/06/17 Discharge Date: 11/10/17 - History Present History: Opioid Dependence Additional Comments: PATIENT MOVING TO [place], WILL LIKELY GO TO [facility] ( [place]) OUTPATIENT PROGRAM FOR AFTERCARE. PATIENT WAS DISCHARGED FROM DETOX UNIT IN STABLE MEDICAL CONDITION. Pertinent Past History: Nicotine Dependence, Anxiety, Depression, Insomnia. - Physical Exam Results Vital Signs: Vital Signs Temperature 96.5 F L 11/10/17 06:05 Pulse Rate 71 11/10/17 06:05 Respiratory Rate 11/10/17 06:05 Blood Pressure 101/74 11/10/17 06:05 O2 Sat by Pulse Oximetry (%) Pertinent Admission Physical Exam Findings: WITHDRAWAL SYMPTOMS. Laboratory Tests 11/07/17 11/07/17 11/07/17 08:00 08:00 08:00 WBC 7.1 RBC 4.38 Hgb 13.8 Hct 39.6 MCV 90.4 MCH 31.5 MCHC 34.8 RDW 13.1 Plt Count 254 MPV 8.0 Sodium 140 Potassium 4.0 Chloride 106 Carbon Dioxide 27 Anion Gap 7 L BUN 11 Creatinine 0.8 Creat Clearance w eGFR > 60 Random Glucose 95 D Calcium 8.4 L Total Bilirubin 0.4 D AST 36 ALT 38 Alkaline Phosphatase 87 Total Protein 7.4 Albumin 3.2 L Urine Color Urine Appearance Urine pH Ur Specific [place] Urine Protein Urine Glucose (UA) Urine Ketones Urine Blood Urine Nitrite Urine Bilirubin Urine Urobilinogen Ur Leukocyte Esterase RPR Titer Nonreactive 11/08/17 09:14 WBC RBC Hgb Hct MCV MCH MCHC RDW Plt Count MPV Sodium Potassium Chloride Carbon Dioxide Anion Gap BUN Creatinine Creat Clearance w eGFR Random Glucose Calcium Total Bilirubin AST ALT Alkaline Phosphatase Total Protein Albumin Urine Color Colorless Urine Appearance Clear Urine pH 7.0 D Ur Specific [place] 1.002 Urine Protein Negative Urine Glucose (UA) Negative Urine Ketones Negative Urine Blood Negative Urine Nitrite Negative Urine Bilirubin Negative Urine Urobilinogen Negative Ur Leukocyte Esterase Negative RPR Titer LABS NOTED. - Treatment Hospital Course: Detox Protocol Followed, Detoxed Safely, Responded well, Discharged Condition Good Patient has Accepted a Rehab Referral to: PT MOVING TO [place], WILL ATTEND [facility] ([place]). - Medication Discharge Medications: Ambulatory Orders NK [No Known Home Medication] 10/14/13 - Diagnosis (1) Anxiety Status: Acute (2) Depressed affect Status: Acute (3) Nicotine dependence Status: Acute (4) Opioid dependence with withdrawal Status: Acute (5) Weight decreased Status: Acute (6) Insomnia Status: Chronic Qualifiers: Insomnia type: unspecified Qualified Code(s): G47.00 - Insomnia, unspecified (7) Drug-induced mood disorder Status: Suspected - AMA Did Patient Leave Against Medical Advice: No
[2017-11-11] MEDS ORDERED: METHADONE HCL 5 MG TABLET (FOR DETOX USE ONLY) PO ONE (06:00)
== END 2017-11-10 07:32 | disposition home or self-care (01) | DRG 773 ==
LOC: YASAS 13:56 → Y3N 17:13
PROVIDERS: ADMIT Internal Medicine; ATTEND Internal Medicine
PROC: HZ2ZZZZ Detoxification Services for Substance Abuse Treatment (ICD-10-PCS; principal; 2017-11-06)
DX: F11.23 Opioid dependence with withdrawal (principal); F17.210 Nicotine dependence, cigarettes, uncomplicated; F19.24 Other psychoactive substance dependence with psychoactive substance-induced mood disorder; F41.9 Anxiety disorder, unspecified; F32.9 Major depressive disorder, single episode, unspecified; R03.0 Elevated blood-pressure reading, without diagnosis of hypertension; G47.00 Insomnia, unspecified; Z91.013 Allergy to seafood; Z87.898 Personal history of other specified conditions
CPT/HCPCS: 36415; 80053; 81003; 85027; 86593; 93005; 93010; J0735

== ENCOUNTER 2018-08-04 12:52 | Inpatient (IN) | payer OTHER ==
[2018-08-04 14:24] VITALS: BMI 19.8
--- NOTE | 2018-08-04 15:20 | HP ---
COWS - Scale Resting Pulse: 1= [place] 81-100 Sweatin= Chills/Flushing Restless Observation: 3= Extraneous Movement Pupil Size: 1= Pupils >than Normal Bone or Joint Aches: 2= Severe Diffuse Aches Runny Nose/ Eye Tearin= Runny Nose/Eyes GI Upset > 30mins: 2= Nausea/Diarrhea Tremor Observation: 2= Slight Tremor Visible Yawning Observation: 1= 1-2x During Session Anxiety or Irritability: 2=Irritable/Anxious Goose Flesh Skin: 0=Smooth Skin COWS Score: 17 CIWA Score - Admission Criteria [facility]AS[facility] Guidelines: Admission for Medically Managed Detox: Requires at least one of the followin. CIWA greater than 12 2. Seizures within the past 24 hours 3. Delirium tremens within the past 24 hours 4. Hallucinations within the past 24 hours 5. Acute intervention needed for co occurring medical disorder 6. Acute intervention needed for co occurring psychiatric disorder 7. Severe withdrawal that cannot be handled at a lower level of care (continued vomiting, continued diarrhea, abnormal vital signs) requiring intravenous medication and/or fluids 8. Admission ROS [facility] [place] Chief Complaint: i need help to stop using heroin Allergies/Adverse Reactions: Allergies Allergy/AdvReac Type Severity Reaction Status Date / Time fish derived Allergy Severe Hives & Verified 08/04/18 14:47 Rash shellfish derived Allergy Severe Hives Verified 08/04/18 14:47 No Known Drug Allergies Allergy Verified 08/04/18 14:47 sea food Allergy Severe Hives Uncoded 08/04/18 14:47 History of Present Illness: this 53 years old male with heroin dependence seeking detox,withdrawal symptom ,last treatment [facility] 03/03/18 to 03/07/18 weight loss nicotine dependence multiple admissions in detox longest period of sobriety 3 years plan for rehab after detox Exam Limitations: No Limitations - Ebola screening Have you traveled outside of the country in the last 21 days: No Have you had contact with anyone from an Ebola affected area: No Have you been sick,other than usual withdrawal symptoms: No - Review of Systems Constitutional: Chills, Loss of Appetite, Malaise, Night Sweats, Changes in sleep, Weakness, Unintentional Wgt. Loss EENT: reports: Tearing, Nose Congestion Respiratory: reports: No Symptoms reported Cardiac: reports: No Symptoms Reported GI: reports: No Symptoms Reported, Nausea, Poor Appetite : reports: No Symptoms Reported Musculoskeletal: reports: Back Pain, Muscle Pain, Muscle Weakness, Joint Stiffness Integumentary: reports: Dryness Neuro: reports: Headache, Tremors Endocrine: reports: No Symptoms Reported, See HPI, Excessive Sweating, Flushing Hematology: reports: No Symptoms Reported Psychiatric: reports: No Sypmtoms Reported, Judgement Intact, Mood/Affect Appropiate, Orientated x3 Other Systems: Reviewed and Negative Patient History - Patient Medical History Hx Anemia: No Hx Asthma: No Hx Chronic Obstructive Pulmonary Disease (COPD): No Hx Cancer: No Hx Cardiac Disorders: No Hx Congestive Heart Failure: No Hx Hypertension: No Hx Hypercholesterolemia: No Hx Pacemaker: No HX Cerebrovascular Accident: No Hx Seizures: No Hx Dementia: No Hx Diabetes: No Hx Gastrointestinal Disorders: No Hx Liver Disease: No Hx Genitourinary Disorders: No Hx Sexually Transmitted Disorders: No Hx Renal Disease (ESRD): No Hx Thyroid Disease: No Hx Human Immunodeficiency Virus (HIV): No (last 2018 negative) Hx Hepatitis C: No Hx Depression: No Hx Suicide Attempt: No Hx Bipolar Disorder: No Hx Schizophrenia: No Other Medical History: nosuicidal,no homicidal - Patient Surgical History Past Surgical History: No Hx Neurologic Surgery: No Hx Cataract Extraction: No Hx Cardiac Surgery: No Hx Lung Surgery: No Hx Breast Surgery: No Hx Breast Biopsy: No Hx Abdominal Surgery: No Hx Appendectomy: No Hx Cholecystectomy: No Hx Genitourinary Surgery: No Hx Section: No Hx Orthopedic Surgery: No Anesthesia Reaction: No - PPD History Previous Implant?: Yes Documented Results: Negative w/proof Implanted On Prior [facility] Admission?: Yes Date: 03/06/18 Results: 0 mm PPD to be Administered?: No - Smoking Cessation Smoking history: Current every day smoker Have you smoked in the past 12 months: Yes Aproximately how many cigarettes per day: 7 Cigars Per Day: 0 Hx Chewing Tobacco Use: No Initiated information on smoking cessation: Yes 'Breaking Loose' booklet given: 08/04/18 - Substance & Tx. History Hx Alcohol Use: No Hx Substance Use: Yes Substance Use Type: Heroin Hx Substance Use Treatment: Yes ([facility] 03/03/18 to 03/07/18) - Substances Abused Heroin Route: Injection Frequency: Daily Amount used: $60 Age of first use: 21 Date of Last Use: 08/03/18 Family Disease History - Family Disease History Family Disease History: [place]: Father (PROSTATE ) Admission Physical Exam [facility] - Vital Signs Vital Signs: Vital Signs - 24 hr 08/04/18 14:17 Temperature 97.1 F L Pulse Rate 66 Respiratory 18 Rate Blood Pressure 139/103 H - Physical General Appearance: Yes: Moderate Distress, Tremorous, Irritable, Sweating, Anxious HEENTM: Yes: Normal ENT Inspection, GRACIELA, Pharynx Normal Respiratory: Yes: Lungs Clear, Normal Breath Sounds, No Respiratory Distress Neck: Yes: Within Normal Limits, Supple, Trachea in good position Breast: Yes: Within Normal Limits Cardiology: Yes: Within Normal Limits, Regular Rhythm, Regular Rate, S1, S2 Abdominal: Yes: Within Normal Limits, Normal Bowel Sounds, Non Tender, Flat, Soft Genitourinary: Yes: Within Normal Limits Back: Yes: Muscle Spasm Musculoskeletal: Yes: full range of Motion, Back pain, Joint Stiffness, Muscle Pain Extremities: Yes: Within Normal Limits, Normal Range of Motion, Tremors Neurological: Yes: plant superintendent II-XII NML intact, Fully Oriented, Alert, Motor Strength 5/5 Integumentary: Yes: Dry, Track Dasilva, Other (tinea pedis) Lymphatic: Yes: Within Normal Limits - Diagnostic (1) Nicotine dependence Current Visit: No Status: Acute (2) Opioid dependence with withdrawal Current Visit: No Status: Acute (3) Weight decreased Current Visit: No Status: Acute (4) IVDU (intravenous drug user) Current Visit: Yes Status: Acute (5) Tinea pedis Current Visit: Yes Status: Acute Cleared for Admission [facility] - Detox or Rehab [facility] Level of Care: Medically Managed Detox Regimen/Protocol: Methadone [facility] Breath Alcohol Content Breath Alcohol Content: 0 Urine Drug Screen - Results Urine Drug Screen Results: OPI-Opiates, BZO-Benzodiazepines Inpatient Rehab Admission - Rehab Decision to Admit Inpatient rehab admission?: No
[2018-08-04] MEDS ORDERED: ACETAMINOPHEN 325 MG TABLET (FP) PO PRN (15:35)
[2018-08-04] MEDS ORDERED: MAGNESIUM HYDROX 2400MG/30ML ORAL SUSPENSION 30 ML CUP PO PRN (15:35)
[2018-08-04] MEDS ORDERED: guaiFENesin/D-METHORPHAN HB 10 ML UNIT-DOSE CUPS PO PRN (15:35)
[2018-08-04] MEDS ORDERED: P-EPHED 60MG/TRIPROLIDI 2.5MG TABLET PO PRN (15:35)
[2018-08-04] MEDS ORDERED: MENTHOL/PHENOL 1 EACH UD MM PRN (15:35)
[2018-08-04] MEDS ORDERED: MAGNESIUM CITRATE 300 ML BOTTLE PO PRN (15:35)
[2018-08-04] MEDS ORDERED: MAG HYDROX/AL HYDROX/SIMETH 30 ML UNIT-DOSE CUP PO PRN (15:35)
[2018-08-04] MEDS ORDERED: METHADONE HCL 10 MG TABLET (FOR DETOX USE ONLY) PO ONE ×2 (15:35→23:00)
[2018-08-04] MEDS ORDERED: LOPERAMIDE HCL 2 MG CAPSULE PO PRN (15:35)
[2018-08-04] MEDS ORDERED: cloNIDine HCL 0.1 MG TABLET PO ONE (17:25)
[2018-08-04] MEDS: diazePAM 5 MG TABLET PO PRN ×2 (17:26→22:31)
[2018-08-04] MEDS: TOLNAFTATE 1% CREAM 15 GM TUBE TP SCH (22:31)
[2018-08-04] MEDS: THIAMINE HCL 100 MG TABLET (FP) PO SCH (22:31)
[2018-08-04] MEDS: cloNIDine HCL 0.1 MG TABLET PO SCH (22:32)
[2018-08-04] MEDS: CYCLOBENZAPRINE HCL 10 MG TABLET (FP) PO PRN (22:33)
[2018-08-04] MEDS: IBUPROFEN 400 MG TABLET (FP) PO PRN (22:34)
[2018-08-05] MEDS: diazePAM 5 MG TABLET PO PRN ×4 (07:40→22:14)
[2018-08-05] MEDS ORDERED: METHADONE HCL 10 MG TABLET (FOR DETOX USE ONLY) PO ONE (10:00)
[2018-08-05 10:35] LABS: HEMOGLOBIN 14.2 GM/dL (11.7-16.9); MCH 30.5 pg (25.7-33.7); MCHC 34.7 g/dl (32.0-35.9); PLATELET COUNT 263 K/MM3 (134-434); RBC 4.65 M/mm3 (4.00-5.60); RDW 14.9 % (11.9-15.9); WHITE BLOOD COUNT 8.7 K/mm3 (4.0-10.0)
[2018-08-05] MEDS: cloNIDine HCL 0.1 MG TABLET PO SCH ×2 (10:38→22:10)
[2018-08-05] MEDS: PRENATAL VITAMINS W/ FOLIC ACID TABLET (FP) PO SCH (10:38)
[2018-08-05] MEDS: IBUPROFEN 400 MG TABLET (FP) PO PRN ×2 (10:41→22:09)
[2018-08-05] MEDS: TOLNAFTATE 1% CREAM 15 GM TUBE TP SCH ×2 (10:41→22:10)
[2018-08-05 10:57] LABS: URINE APPEARANCE CLEAR; URINE BILIRUBIN NEGATIVE (<2.0 mg/dL); URINE COLOR DKYELLOW; URINE GLUCOSE (UA) NEGATIVE (NEGATIVE); URINE KETONE NEGATIVE (NEGATIVE); URINE LEUK ESTERASE NEGATIVE (NEGATIVE); URINE NITRITE NEGATIVE (NEGATIVE); URINE PROTEIN 1+ (NEGATIVE); URINE UROBILINOGEN NEGATIVE mg/dL (0.2-1.0)
[2018-08-05 11:02] LABS: ALBUMIN 3.8 g/dl (3.4-5.0); ALK PHOS 100 U/L (45-117); ANION GAP 8 MMOL/L (8-16); BILIRUBIN,TOTAL 0.3 mg/dL (0.2-1); BLOOD UREA NITROGEN 14 mg/dL (7-18); CHLORIDE 108 mmol/L (98-107); CO2 24 mmol/L (21-32); CREATININE 0.9 mg/dL (0.55-1.3); GLUCOSE,RANDOM 87 mg/dL (74-106); SGOT/AST 37 U/L (15-37); SGPT/ALT 49 U/L (13-61); SODIUM 140 mmol/L (136-145); TOT PROT 8.7 g/dl (6.4-8.2)
[2018-08-05 11:03] LABS: EPI CELLS RARE /HPF (FEW); URINE MUCUS FEW
[2018-08-05] MEDS ORDERED: FLU VACCINE QUAD 60 MCG/0.5 ML (MDV 18-19) IM ONE (12:00)
--- NOTE | 2018-08-05 14:50 | PN ---
BHS COWS - Scale Resting Pulse: 0= [place] 80 or Below Sweatin= Chills/Flushing Restless Observation: 1= Difficult to Sit Still Pupil Size: 1= Pupils >than Normal Bone or Joint Aches: 2= Severe Diffuse Aches Runny Nose/ Eye Tearin= Nasal Congestion GI Upset > 30mins: 2= Nausea/Diarrhea Tremor Observation of Outstretched Hands: 2= Slight Tremor Visible Yawning Observation: 1= 1-2x During Session Anxiety or Irritability: 2=Irritable/Anxious Goose Flesh Skin: 0=Smooth Skin COWS Score: 13 S Progress Note (SOAP) Subjective: patient had flu shot and pneumococcus vaccinated in 2018 body aches muscle cramping tremor sweating Objective: 08/05/18 14:57 Vital Signs Temperature 98.6 F 08/05/18 09:18 Pulse Rate 87 08/05/18 09:18 Respiratory Rate 18 08/05/18 09:18 Blood Pressure 136/101 H 08/05/18 09:18 O2 Sat by Pulse Oximetry (%) Laboratory Last Values WBC 8.7 K/mm3 (4.0-10.0) 08/05/18 07:00 RBC 4.65 M/mm3 (4.00-5.60) 08/05/18 07:00 Hgb 14.2 GM/dL (11.7-16.9) 08/05/18 07:00 Hct 41.0 % (35.4-49) 08/05/18 07:00 MCV 88.0 fl (80-96) 08/05/18 07:00 MCH 30.5 pg (25.7-33.7) 08/05/18 07:00 MCHC 34.7 g/dl (32.0-35.9) 08/05/18 07:00 RDW 14.9 % (11.9-15.9) 08/05/18 07:00 Plt Count 263 K/MM3 (134-434) 08/05/18 07:00 MPV 8.0 fl (7.5-11.1) 08/05/18 07:00 Sodium 140 mmol/L (136-145) 08/05/18 07:00 Potassium 4.0 mmol/L (3.5-5.1) 08/05/18 07:00 Chloride 108 mmol/L (98-107) H 08/05/18 07:00 Carbon Dioxide 24 mmol/L (21-32) 08/05/18 07:00 Anion Gap 8 MMOL/L (8-16) 08/05/18 07:00 BUN 14 mg/dL (7-18) 08/05/18 07:00 Creatinine 0.9 mg/dL (0.55-1.3) 08/05/18 07:00 Creat Clearance w eGFR > 60 (>60) 08/05/18 07:00 Random Glucose 87 mg/dL (74-106) 08/05/18 07:00 Calcium 9.0 mg/dL (8.5-10.1) 08/05/18 07:00 Total Bilirubin 0.3 mg/dL (0.2-1) 08/05/18 07:00 AST 37 U/L (15-37) 08/05/18 07:00 ALT 49 U/L (13-61) 08/05/18 07:00 Alkaline Phosphatase 100 U/L (45-117) 08/05/18 07:00 Total Protein 8.7 g/dl (6.4-8.2) H 08/05/18 07:00 Albumin 3.8 g/dl (3.4-5.0) 08/05/18 07:00 Urine Color Dky[place] 08/05/18 07:00 Urine Appearance Clear 08/05/18 07:00 Urine pH 5.0 (5.0-8.0) D 08/05/18 07:00 Ur Specific [place] 1.028 (1.010-1.035) 08/05/18 07:00 Urine Protein 1+ (NEGATIVE) H 08/05/18 07:00 Urine Glucose (UA) Negative (NEGATIVE) 08/05/18 07:00 Urine Ketones Negative (NEGATIVE) 08/05/18 07:00 Urine Blood Negative (NEGATIVE) 08/05/18 07:00 Urine Nitrite Negative (NEGATIVE) 08/05/18 07:00 Urine Bilirubin Negative (<2.0 mg/dL) 08/05/18 07:00 Urine Urobilinogen Negative mg/dL (0.2-1.0) 08/05/18 07:00 Ur Leukocyte Esterase Negative (NEGATIVE) 08/05/18 07:00 Urine WBC (Auto) 1 /hpf (3-5) 08/05/18 07:00 Urine RBC (Auto) 1 /hpf (0-3) 08/05/18 07:00 Ur Epithelial Cells Rare /HPF (FEW) 08/05/18 07:00 Urine Mucus Few 08/05/18 07:00 RPR Titer Nonreactive (NONREACTIVE) 08/05/18 07:00 HIV 1&2 Antibody Screen Negative 08/05/18 07:00 HIV P24 Antigen Negative 08/05/18 07:00 lab noted Assessment: 08/05/18 14:57 withdrawal sx Plan: continue detox
[2018-08-05] MEDS: THIAMINE HCL 100 MG TABLET (FP) PO SCH (22:09)
[2018-08-05] MEDS: MELATONIN 5 MG TABLETS PO PRN (22:10)
[2018-08-06] MEDS: diazePAM 5 MG TABLET PO PRN ×4 (05:40→20:44)
[2018-08-06] MEDS: TOLNAFTATE 1% CREAM 15 GM TUBE TP SCH ×2 (09:40→22:49)
[2018-08-06] MEDS: PRENATAL VITAMINS W/ FOLIC ACID TABLET (FP) PO SCH (09:40)
[2018-08-06] MEDS: cloNIDine HCL 0.1 MG TABLET PO SCH ×2 (09:40→22:49)
[2018-08-06] MEDS ORDERED: METHADONE HCL 5 MG TABLET (FOR DETOX USE ONLY) PO ONE (10:00)
[2018-08-06] MEDS: NICOTINE POLACRILEX 2 MG GUM BUC PRN ×3 (11:20→22:50)
--- NOTE | 2018-08-06 17:56 | PN ---
BHS COWS - Scale Resting Pulse: 0= [place] 80 or Below Sweatin= Chills/Flushing Restless Observation: 1= Difficult to Sit Still Pupil Size: 0= Normal to Room Light Bone or Joint Aches: 1= Mild Discomfort Runny Nose/ Eye Tearin= None GI Upset > 30mins: 0= None Tremor Observation of Outstretched Hands: 2= Slight Tremor Visible Yawning Observation: 1= 1-2x During Session Anxiety or Irritability: 2=Irritable/Anxious Goose Flesh Skin: 0=Smooth Skin COWS Score: 8 BHS Progress Note (SOAP) Subjective: Tremors (mild), Body Aches, Anxious. Objective: PATIENT A & O X 3, OBSERVED AMBULATING ON UNIT. IN NO ACUTE DISTRESS. 08/06/18 17:53 Vital Signs Temperature 96.6 F L 08/06/18 13:19 Pulse Rate 66 08/06/18 13:19 Respiratory Rate 18 08/06/18 13:19 Blood Pressure 117/80 08/06/18 13:19 O2 Sat by Pulse Oximetry (%) Laboratory Tests 08/05/18 08/05/18 08/05/18 07:00 07:00 07:00 WBC 8.7 RBC 4.65 Hgb 14.2 Hct 41.0 MCV 88.0 MCH 30.5 MCHC 34.7 RDW 14.9 Plt Count 263 MPV 8.0 Sodium 140 Potassium 4.0 Chloride 108 H Carbon Dioxide 24 Anion Gap 8 BUN 14 Creatinine 0.9 Creat Clearance w eGFR > 60 Random Glucose 87 Calcium 9.0 Total Bilirubin 0.3 AST 37 ALT 49 Alkaline Phosphatase 100 Total Protein 8.7 H Albumin 3.8 Urine Color Urine Appearance Urine pH Ur Specific [place] Urine Protein Urine Glucose (UA) Urine Ketones Urine Blood Urine Nitrite Urine Bilirubin Urine Urobilinogen Ur Leukocyte Esterase Urine WBC (Auto) Urine RBC (Auto) Ur Epithelial Cells Urine Mucus RPR Titer HIV 1&2 Antibody Screen Negative HIV P24 Antigen Negative 08/05/18 08/05/18 07:00 07:00 WBC RBC Hgb Hct MCV MCH MCHC RDW Plt Count MPV Sodium Potassium Chloride Carbon Dioxide Anion Gap BUN Creatinine Creat Clearance w eGFR Random Glucose Calcium Total Bilirubin AST ALT Alkaline Phosphatase Total Protein Albumin Urine Color Dkyellow Urine Appearance Clear Urine pH 5.0 D Ur Specific [place] 1.028 Urine Protein 1+ H Urine Glucose (UA) Negative Urine Ketones Negative Urine Blood Negative Urine Nitrite Negative Urine Bilirubin Negative Urine Urobilinogen Negative Ur Leukocyte Esterase Negative Urine WBC (Auto) 1 Urine RBC (Auto) 1 Ur Epithelial Cells Rare Urine Mucus Few RPR Titer Nonreactive HIV 1&2 Antibody Screen HIV P24 Antigen LABS NOTED. Assessment: 08/06/18 17:54 WITHDRAWAL SYMPTOMS. Plan: CONTINUE DETOX. PATIENT REPORTS THAT HE IS TOLERATING CURRENT WITHDRAWAL / DETOX SYMPTOMS WELL. AT PATIENT'S REQUEST, CURRENT DETOX MEDICATION REGIMEN (METHADONE) MODIFIED SO THAT PATIENT MAY BE DISCHARGED ON 08/08/2018.
[2018-08-06] MEDS: BACITRACIN 0.9 GM PACKET TP SCH (22:49)
[2018-08-06] MEDS: THIAMINE HCL 100 MG TABLET (FP) PO SCH (22:49)
[2018-08-06] MEDS: MELATONIN 5 MG TABLETS PO PRN (22:50)
[2018-08-07] MEDS: NICOTINE POLACRILEX 2 MG GUM BUC PRN ×4 (05:21→22:52)
[2018-08-07] MEDS: CYCLOBENZAPRINE HCL 10 MG TABLET (FP) PO PRN (05:21)
[2018-08-07] MEDS: diazePAM 5 MG TABLET PO PRN (05:21)
[2018-08-07] MEDS ORDERED: METHADONE HCL 10 MG TABLET (FOR DETOX USE ONLY) PO ONE (10:00)
[2018-08-07] MEDS ORDERED: METHADONE HCL 5 MG TABLET (FOR DETOX USE ONLY) PO ONE (10:00)
[2018-08-07] MEDS: PRENATAL VITAMINS W/ FOLIC ACID TABLET (FP) PO SCH (10:16)
[2018-08-07] MEDS: BACITRACIN 0.9 GM PACKET TP SCH ×2 (10:17→22:51)
[2018-08-07] MEDS: TOLNAFTATE 1% CREAM 15 GM TUBE TP SCH ×2 (10:17→23:03)
[2018-08-07] MEDS: cloNIDine HCL 0.1 MG TABLET PO SCH ×2 (10:19→23:03)
--- NOTE | 2018-08-07 15:57 | PN ---
[facility] Progress Note (SOAP) Subjective: Sweating. Objective: PATIENT A & O X 3, OBSERVED AMBULATING ON UNIT. IN NO ACUTE DISTRESS. 08/07/18 15:55 Vital Signs Temperature 98.0 F 08/07/18 13:29 Pulse Rate 68 08/07/18 13:29 Respiratory Rate 18 08/07/18 13:29 Blood Pressure 137/85 08/07/18 13:29 O2 Sat by Pulse Oximetry (%) Laboratory Tests 08/05/18 08/05/18 08/05/18 07:00 07:00 07:00 WBC 8.7 RBC 4.65 Hgb 14.2 Hct 41.0 MCV 88.0 MCH 30.5 MCHC 34.7 RDW 14.9 Plt Count 263 MPV 8.0 Sodium 140 Potassium 4.0 Chloride 108 H Carbon Dioxide 24 Anion Gap 8 BUN 14 Creatinine 0.9 Creat Clearance w eGFR > 60 Random Glucose 87 Calcium 9.0 Total Bilirubin 0.3 AST 37 ALT 49 Alkaline Phosphatase 100 Total Protein 8.7 H Albumin 3.8 Urine Color Urine Appearance Urine pH Ur Specific [place] Urine Protein Urine Glucose (UA) Urine Ketones Urine Blood Urine Nitrite Urine Bilirubin Urine Urobilinogen Ur Leukocyte Esterase Urine WBC (Auto) Urine RBC (Auto) Ur Epithelial Cells Urine Mucus RPR Titer HIV 1&2 Antibody Screen Negative HIV P24 Antigen Negative 08/05/18 08/05/18 07:00 07:00 WBC RBC Hgb Hct MCV MCH MCHC RDW Plt Count MPV Sodium Potassium Chloride Carbon Dioxide Anion Gap BUN Creatinine Creat Clearance w eGFR Random Glucose Calcium Total Bilirubin AST ALT Alkaline Phosphatase Total Protein Albumin Urine Color Dkyellow Urine Appearance Clear Urine pH 5.0 D Ur Specific [place] 1.028 Urine Protein 1+ H Urine Glucose (UA) Negative Urine Ketones Negative Urine Blood Negative Urine Nitrite Negative Urine Bilirubin Negative Urine Urobilinogen Negative Ur Leukocyte Esterase Negative Urine WBC (Auto) 1 Urine RBC (Auto) 1 Ur Epithelial Cells Rare Urine Mucus Few RPR Titer Nonreactive HIV 1&2 Antibody Screen HIV P24 Antigen LABS NOTED. Assessment: 08/07/18 15:55 WITHDRAWAL SYMPTOMS. Plan: CONTINUE DETOX. PATIENT SCHEDULED FOR D/C TOMORROW. NARCAN KIT SENT TO [facility] ([place], [place]).
[2018-08-07] MEDS: THIAMINE HCL 100 MG TABLET (FP) PO SCH (22:51)
[2018-08-07] MEDS: MELATONIN 5 MG TABLETS PO PRN (22:51)
[2018-08-08] MEDS ORDERED: METHADONE HCL 5 MG TABLET (FOR DETOX USE ONLY) PO ONE (06:00)
[2018-08-08 06:20] VITALS: BP 130/88; PULSE 71; TEMP 96.4
--- NOTE | 2018-08-08 08:44 | DS ---
[facility] Detox Discharge Summary Admission Date: 08/04/18 Discharge Date: 08/08/18 - History Present History: Opioid Dependence Additional Comments: 53 years old male admitted on 08/04/18 for opiate withdrawal stabilization completed detox regimen aftercare [facility] discuss medication assisted treatment program patient agrees return to [facility] - Physical Exam Results Vital Signs: Vital Signs Temperature 96.4 F L 08/08/18 06:19 Pulse Rate 71 08/08/18 06:19 Respiratory Rate 18 08/08/18 06:19 Blood Pressure 130/88 08/08/18 06:19 O2 Sat by Pulse Oximetry (%) Pertinent Admission Physical Exam Findings: opiate withdrawal sx Laboratory Last Values WBC 8.7 K/mm3 (4.0-10.0) 08/05/18 07:00 RBC 4.65 M/mm3 (4.00-5.60) 08/05/18 07:00 Hgb 14.2 GM/dL (11.7-16.9) 08/05/18 07:00 Hct 41.0 % (35.4-49) 08/05/18 07:00 MCV 88.0 fl (80-96) 08/05/18 07:00 MCH 30.5 pg (25.7-33.7) 08/05/18 07:00 MCHC 34.7 g/dl (32.0-35.9) 08/05/18 07:00 RDW 14.9 % (11.9-15.9) 08/05/18 07:00 Plt Count 263 K/MM3 (134-434) 08/05/18 07:00 MPV 8.0 fl (7.5-11.1) 08/05/18 07:00 Sodium 140 mmol/L (136-145) 08/05/18 07:00 Potassium 4.0 mmol/L (3.5-5.1) 08/05/18 07:00 Chloride 108 mmol/L (98-107) H 08/05/18 07:00 Carbon Dioxide 24 mmol/L (21-32) 08/05/18 07:00 Anion Gap 8 MMOL/L (8-16) 08/05/18 07:00 BUN 14 mg/dL (7-18) 08/05/18 07:00 Creatinine 0.9 mg/dL (0.55-1.3) 08/05/18 07:00 Creat Clearance w eGFR > 60 (>60) 08/05/18 07:00 Random Glucose 87 mg/dL (74-106) 08/05/18 07:00 Calcium 9.0 mg/dL (8.5-10.1) 08/05/18 07:00 Total Bilirubin 0.3 mg/dL (0.2-1) 08/05/18 07:00 AST 37 U/L (15-37) 08/05/18 07:00 ALT 49 U/L (13-61) 08/05/18 07:00 Alkaline Phosphatase 100 U/L (45-117) 08/05/18 07:00 Total Protein 8.7 g/dl (6.4-8.2) H 08/05/18 07:00 Albumin 3.8 g/dl (3.4-5.0) 08/05/18 07:00 Urine Color Dkyellow 08/05/18 07:00 Urine Appearance Clear 08/05/18 07:00 Urine pH 5.0 (5.0-8.0) D 08/05/18 07:00 Ur Specific [place] 1.028 (1.010-1.035) 08/05/18 07:00 Urine Protein 1+ (NEGATIVE) H 08/05/18 07:00 Urine Glucose (UA) Negative (NEGATIVE) 08/05/18 07:00 Urine Ketones Negative (NEGATIVE) 08/05/18 07:00 Urine Blood Negative (NEGATIVE) 08/05/18 07:00 Urine Nitrite Negative (NEGATIVE) 08/05/18 07:00 Urine Bilirubin Negative (<2.0 mg/dL) 08/05/18 07:00 Urine Urobilinogen Negative mg/dL (0.2-1.0) 08/05/18 07:00 Ur Leukocyte Esterase Negative (NEGATIVE) 08/05/18 07:00 Urine WBC (Auto) 1 /hpf (3-5) 08/05/18 07:00 Urine RBC (Auto) 1 /hpf (0-3) 08/05/18 07:00 Ur Epithelial Cells Rare /HPF (FEW) 08/05/18 07:00 Urine Mucus Few 08/05/18 07:00 RPR Titer Nonreactive (NONREACTIVE) 08/05/18 07:00 HIV 1&2 Antibody Screen Negative 08/05/18 07:00 HIV P24 Antigen Negative 08/05/18 07:00 lab noted - Treatment Hospital Course: Detox Protocol Followed, Detoxed Safely, Responded well, Discharged Condition Good, Rehab Referral Accepted Patient has Accepted a Rehab Referral to: [facility] - Medication Discharge Medications: Ambulatory Orders Naloxone HCl [Narcan] 4 mg NS ASDIR PRN #1 kit 08/07/18 - Diagnosis (1) Nicotine dependence Status: Acute (2) Opioid dependence with withdrawal Status: Acute (3) Weight decreased Status: Acute (4) Drug-induced mood disorder Status: Suspected - AMA Did Patient Leave Against Medical Advice: No
[2018-08-08] MEDS ORDERED: METHADONE HCL 10 MG TABLET (FOR DETOX USE ONLY) PO ONE (10:00)
[2018-08-09] MEDS ORDERED: METHADONE HCL 5 MG TABLET (FOR DETOX USE ONLY) PO ONE (06:00)
== END 2018-08-08 06:40 | disposition home or self-care (01) | DRG 773 ==
LOC: YASAS 12:52 → Y3N 15:30
PROVIDERS: ADMIT Surgery; ATTEND Surgery
PROC: HZ2ZZZZ Detoxification Services for Substance Abuse Treatment (ICD-10-PCS; principal; 2018-08-04)
DX: F11.23 Opioid dependence with withdrawal (principal); F17.210 Nicotine dependence, cigarettes, uncomplicated; B35.3 Tinea pedis; R63.4 Abnormal weight loss; Z68.1 Body mass index [BMI] 19.9 or less, adult; Z91.013 Allergy to seafood
CPT/HCPCS: 36415; 80053; 81003; 81015; 85027; 86593; 87389; 90688; G0008; J0735